=== PATIENT | female | born 1965 | race Two or more races ===

== ENCOUNTER 2025-10-19 13:32 | Emergency (ER) | payer MEDICAID, SELFPAY ==
[2025-10-19 13:51] VITALS: BP 124/83; PULSE 96; RESP 20; TEMP 37.5; O2SAT 95
[2025-10-19 14:37] LABS: Lactate (Lactic Acid) 2.5 mMol/L (0.4-2.0)
[2025-10-19 14:39] LABS: Basophils # (Auto) 0.1 Thou/mm3 (0.0-0.2); Basophils % (Auto) 1 % (0-2.5); Eosinophils # (Auto) 0.0 Thou/mm3 (0.0-0.5); Eosinophils % (Auto) 0 % (0-10); Hematocrit 42.8 % (36.0-46.0); Hemoglobin 14.6 g/dL (12.0-16.0); Immature Granulocytes Auto 0.14 Thou/mm3 (0.00-0.00); Lymphocytes # (Auto) 1.7 Thou/mm3 (1.0-4.8); Lymphocytes % (Auto) 11 % (10-50); Mean Corpuscular HGB Conc 34.1 g/dl (31.0-37.0); Mean Corpuscular Hemoglobin 29.6 pg (25.0-35.0); Mean Corpuscular Volume 87 fL (80-100); Monocytes # (Auto) 1.1 Thou/mm3 (0.0-0.8); Monocytes % (Auto) 7 % (0-12); Neutrophils # (Auto) 11.6 Thou/mm3 (1.8-7.7); Neutrophils % (Auto) 80 % (37-80); Nucleated Red Blood Cell # 0.00 Thou/mm3 (0.00-0.00); Nucleated Red Blood Cell % 0 /100 WBC (0); Platelet Count 302 Thou/mm3 (140-440); RDW Standard Deviation 45.1 fL (36.4-46.3); Red Blood Count 4.93 Miln/mm3 (4.00-5.20); White Blood Count 14.6 Thou/mm3 (3.6-11.0)
[2025-10-19 15:05] LABS: Alanine Aminotransferase 117 U/L (10-49); Albumin, Serum 4.8 gm/dL (3.4-4.8); Albumin/Globulin Ratio 1.3 (1.2-2.2); Alkaline Phosphatase 80 U/L (46-116); Anion Gap 17 (7-16); Aspartate Amino Transferase 98 U/L (0-34); BUN/Creatinine Ratio 9 Ratio (12-20); Bilirubin,Total 0.6 mg/dL (0.3-1.2); Blood Urea Nitrogen 13 mg/dL (9-23); Calcium 9.1 mg/dL (8.3-10.6); Calcium (Corrected) 9.1 mg/dL (8.5-10.1); Carbon Dioxide 19.8 mMol/L (20.0-31.0); Chloride 100 mMol/L (98-107); Creatinine (Component) 1.5 mg/dL (0.6-1.3); Globulin 3.7 gm/dL (2.3-3.5); Glucose 166 mg/dL (74-106); Osmolality,Calculated 277 (275-295); Potassium 3.3 mMol/L (3.4-5.1); Sodium 137 mMol/L (136-145); Total Protein 8.5 gm/dL (5.7-8.2); eGFR 39 See Note
[2025-10-19] MEDS: MG HYD/AL HYD/SIME (Maalox Reg) SUSP 30 ML UDC PO (16:26)
[2025-10-19] MEDS: ONDANSETRON INJ 2 MG/ML INJ 2 ML 4 MG IVP (16:27)
[2025-10-19 16:33] VITALS: BP 126/57; PULSE 83; RESP 22; O2SAT 96
[2025-10-19] MEDS: SODIUM CHLORIDE 0.9% 1000 ML 1,000 ML 999 ML IV (16:40)
[2025-10-19 17:00] VITALS: BP 135/65; PULSE 81; RESP 20; TEMP 36.8; O2SAT 94
[2025-10-19 17:34] LABS: Reflex Lactate? Y
[2025-10-19 18:42] LABS: Lactic Acid, 3 HR 1.2 mMol/L (0.4-2.0)
[2025-10-19 18:49] VITALS: BP 111/57; PULSE 75; RESP 20; TEMP 36.8; O2SAT 97
[2025-10-19 19:01] LABS: Collection Type, Urine Clean Catch
[2025-10-19 19:17] LABS: Bilirubin,Urine Negative (Negative); Blood,Urine Negative (Negative); Clarity,Urine Turbid (Clear/Hazy); Color,Urine Yellow (Lt Yel-Yel); Glucose, Urine Negative (Negative); Hyaline Casts,Urine 1 /hpf (0-1); Ketones,Urine Negative (Negative); Leukocyte Esterase,Urine Negative (Negative); Nitrite,Urine Negative (Negative); PH,Urine 6.5 (5.0-7.0); Protein,Urine 1+ (Neg - Trace); RBC,Urine 4 /hpf (0-3); Specific Gravity,Urine 1.017 (1.001-1.035); Squamous Epithelial Cell,Urine 2 /hpf (0-5); Urobilinogen,Urine Negative mg/dL (0.0-1.0); WBC,Urine 4 /hpf (0-5)
--- NOTE | 2025-10-19 19:50 | PD.EDFEVER ---
ED Fever RME/HPI General Chief Complaint: Fever Stated Complaint: High fevers, cough, dizzy Time Seen by Provider: 10/19/25 13:45 Source: patient and family Arrival date/time: 10/19/25 13:32 Mode of arrival: ambulatory Limitations: no limitations RME / HPI RME / HPI Narrative: This patient is a mildly histrionic and morbidly obese 60-year-old female who arrives to the ED today with her family member for evaluation of intermittent dizziness with nausea, vomiting and intermittent fever for the past few days. Family states symptoms came on to have abdomen flowed since inception. Patient denies any history of intracranial concerns or dizziness issues. Vital signs were stable arrival. Related Data Home Medications ?Medication ?Instructions ?Recorded ?Confirmed cholecalciferol (vitamin D3) 125 1,250 mcg PO QWEEK 03/11/21 03/11/21 mcg (5,000 unit) tablet (Vitamin D3) lisinopril 10 mg tablet 10 mg PO QDAY 03/11/21 03/11/21 lovastatin 20 mg tablet 20 mg PO QPM 03/11/21 03/11/21 metoprolol tartrate 25 mg tablet 25 mg PO QDAY 03/11/21 03/12/21 Previous Rx's ?Medication ?Instructions ?Recorded docusate sodium 100 mg capsule 100 mg PO BID #60 caps 03/17/21 (DOK) hydrocodone 5 mg-acetaminophen 325 1 tab PO Q6H PRN pain (scale score 03/17/21 mg tablet 7-10) #20 tabs ibuprofen 600 mg tablet 600 mg PO Q8H PRN pain (scale 03/17/21 score 4-6) #15 tabs lactulose 20 gram oral packet 20 g PO BID PRN constipation #30 ea 09/20/21 acetaminophen 500 mg tablet 500 mg PO Q4H PRN fever or pain 10/19/25 (Tylenol Extra Strength) #30 tabs ondansetron 4 mg disintegrating 4 mg PO Q6H PRN nausea and 10/19/25 tablet vomiting #20 tabs oseltamivir 75 mg capsule (Tamiflu) 75 mg PO BID 5 days #10 caps 10/19/25 Allergies Allergy/AdvReac Type Severity Reaction Status Date / Time No Known Allergies Allergy Verified 10/19/25 13:37 Past Medical History Past Medical History NEUROLOGIC: Negative Neurological Disorders or Seizures CARDIAC: Positive Cardiac Disorders, Hypercholesterolemia and Hypertension; Negative Congestive Heart Failure, Edema, Cellulitis or Varicose Veins RESPIRATORY: Negative Chronic Obstructive Pulmonary Disease (COPD), Tuberculosis, Pulmonary Embolism or Sleep Apnea GASTROINTESTINAL: Positive Gastrointestinal Disorders, Hiatal Hernia, Gastroesophageal Reflux Disease and Obesity; Negative Hepatitis GENITOURINARY: Negative Genitourinary Disorders or Renal Disease REPRODUCTIVE: Positive Previous Pregnancies MUSCULOSKELETAL: Positive Scoliosis; Negative Musculoskeletal Disorders ENDOCRINE: Negative Endocrine Disorders, Diabetes Mellitus Type 1 or Diabetes Mellitus Type 2 HEMATOLOGIC: Negative Blood Disorders OTHER HISTORY: Negative Hospitalization, Autoimmune Disease, Shingles, Falls, Blood Transfusions, Blood Transfusion Reaction, Anesthesia Reactions, Chemotherapy, Radiation Therapy, MRSA, Chicken Pox, Measles, Mumps or Cancer Family History FAMILY HISTORY: Positive Family Cardiac Disorders, Family Gastrointestinal Problems and Family Surgery; Negative Family Psychiatric Problems, Family Respiratory Disorders, Family Cancer or Family Anesthesia Reaction Surgical History SURGICAL: Positive Bowel Surgery, Tubal Ligation and Section; Negative Pacemaker Social History SMOKING STATUS: Former smoker SECOND HAND EXPOSURE: No Physical Exam General Limitations: no limitations General appearance: alert and in distress Head Head exam: atraumatic Eye Eye exam: Present normal appearance, PERRL and EOMI ENT ENT exam: Present normal exam, normal oropharynx and mucous membranes moist Neck Neck exam: Present normal inspection, full ROM and trachea midline Chest Chest inspection: Present normal inspection and symmetric chest wall rise Respiratory Respiratory exam: Present normal lung sounds bilaterally Cardiovascular Cardiovascular exam: Present regular rate, normal rhythm and normal heart sounds Abdominal Exam Abdominal exam: Present soft and normal bowel sounds Extremities Exam Extremities exam: Present normal inspection and full ROM Back Exam Back exam: Present normal inspection and full ROM Neurological Exam Neurological exam: Present oriented X3 and CN II-XII intact Psychiatric Psychiatric exam: Present other (Patient look moderately toxic at time of evaluation. Patient was mildly diaphoretic and weak.) Skin Skin exam: Present warm, dry, intact and normal color ED Exam General Limitations: Present no limitations General appearance: Present alert and in distress Head Head exam: Present atraumatic Eye Eye exam: Present normal appearance, PERRL and EOMI ENT ENT exam: Present normal exam, normal oropharynx and mucous membranes moist Neck Neck exam: Present normal inspection, full ROM and trachea midline Chest Chest inspection: Present normal inspection and symmetric chest wall rise Respiratory Respiratory exam: Present normal lung sounds bilaterally Cardiovascular Cardiovascular exam: Present regular rate, normal rhythm and normal heart sounds Abdominal Exam Abdominal exam: Present soft and normal bowel sounds Extremities Exam Extremities exam: Present normal inspection and full ROM Back Exam Back exam: Present normal inspection and full ROM Neurological Exam Neurological exam: Present oriented X3 and CN II-XII intact Psychiatric Psychiatric exam: Present other (Patient look moderately toxic at time of evaluation. Patient was mildly diaphoretic and weak.) Skin Skin exam: Present warm, dry, intact and normal color Course Quality Measures none Orders Category Date Time Status Bedside COVID-19 Antigen Test NOW Care 10/19/25 14:04 Active Bedside Influenza A&B Antigen Test NOW Care 10/19/25 14:04 Completed IV [Insert IV] NOW Care 10/19/25 14:04 Active CBC Stat Lab 10/19/25 14:28 Completed CMP [Comprehensive Metabolic Panel] Stat Lab 10/19/25 14:28 Completed Lactate (Lactic Acid) Stat Lab 10/19/25 14:28 Completed Lactic Acid, 3 HR Stat Lab 10/19/25 18:31 Completed UA [Urinalysis] Stat Lab 10/19/25 18:39 Completed Ondansetron Inj [Zofran Inj] Med 10/19/25 14:02 Discontinued 4 mg IVP X1 ONE Sodium Chloride 0.9% 1000 ml [Ns] 1,000 ml Med 10/19/25 14:02 Discontinued IV 150 mls/hr Sodium Chloride 0.9% 1000 ml [Ns] 1,000 ml Med 10/19/25 16:37 Discontinued IV 999 mls/hr mg Hyd/Al Hyd/Pallavi Susp [Maalox Susp] Med 10/19/25 14:02 Discontinued 30 ml PO X1 ONE As noted above Vital Signs Vital signs: Vital Signs Temperature 99.5 F 10/19/25 13:51 Pulse Rate 96 10/19/25 13:51 Respiratory Rate 20 10/19/25 13:51 Blood Pressure 124/83 10/19/25 13:51 Pulse Oximetry (%) 95 10/19/25 13:51 Oxygen Delivery Method Room Air 10/19/25 13:51 As noted above Fever MDM Narrative MDM Narrative:: All studies performed the ED were evaluated by me personally. Serum and laboratory studies were unremarkable for any systemic concerns. Swab studies were remarkable for influenza A. Patient will be sent home with supportive medication and advised to utilize good hydration and healthy nutrition throughout illness event. Patient data External records reviewed:: [facility] previous records Clinical information provided by:: patient Social determinants that could affect healthcare access:: none Patient has the following chronic illnesses:: None How is presenting disease/condition affected by chronic disease/condition?: uneffected by Evaluation data The following diagnostics were reviewed and interpreted by me:: lab results, radiology exam(s) and EKG tracing(s) Lab and/or radiology exams considered but not ordered:: None Interpretation Summary: Influenza A Medications / Prescriptions Medications or Prescriptions considered but not ordered:: None Medication administrations:: Medication Administration History Discontinued Medications Al Hydrox/Mg Hydrox/Simethicone (Mg Hyd/Al Hyd/Pallavi (Maalox Reg) Susp 30 Ml Udc) 30 ml PO X1 ONE Stop: 10/19/25 14:03 Last Admin: 10/19/25 16:26 Dose: 30 ml Documented By: MANUEL Sodium Chloride (Ns) 1,000 mls @ 150 mls/hr IV .Q6H40M ONE Stop: 10/19/25 20:41 Last Admin: 10/19/25 16:38 Dose: Not Given Documented By: MANUEL Non-Admin Reason: Cancelled by Provider Sodium Chloride (Ns) 1,000 mls @ 999 mls/hr IV .Q1H1M ONE Stop: 10/19/25 15:02 Last Infusion: 10/19/25 18:57 Dose: Infused Documented By: Admin: 10/19/25 16:40 Dose: 999 mls/hr Documented By: MANUEL Ondansetron HCl (Ondansetron Inj 2 Mg/Ml Inj 2 Ml) 4 mg IVP X1 ONE; Protocol Stop: 10/19/25 14:03 Last Admin: 10/19/25 16:27 Dose: 4 mg Documented By: MANUEL As noted above Consultations Consultation(s) initiated? (list below): No Diagnosis Fever Differential Diagnosis: other (Sepsis, electrolyte abnormality, influenza, COVID, UTI) Most likely diagnosis given after review of the tests above:: Influenza A Admission Indicated Admission indicated?: not indicated Explain why admission is indicated or not indicated:: Unwarranted Admission Request Was there a request for admission?: No Disposition Plan Disposition Plan: Discharge Discharge Attestation Discharge Attestation: The patient and all family members were given an opportunity to ask questions and understood the discharge instructions. Discharge instructions specifically effects, indications for sooner follow up or return to the emergency department, and the expected course of current diagnosis. Patient condition: Stable Discharge Plan Plan Patient Disposition: HOME (Self Care) Prescriptions/Referrals Prescriptions/Med Rec: New ondansetron 4 mg tablet,disintegrating 4 mg PO Q6H PRN (Reason: nausea and vomiting) Qty: 20 0RF acetaminophen [Tylenol Extra Strength] 500 mg tablet 500 mg PO Q4H PRN (Reason: fever or pain) Qty: 30 0RF oseltamivir [Tamiflu] 75 mg capsule 75 mg PO BID 5 Days Qty: 10 0RF No Action lisinopril 10 mg Tablet 10 mg PO QDAY lovastatin 20 mg Tablet 20 mg PO QPM metoprolol tartrate 25 mg Tablet 25 mg PO QDAY cholecalciferol (vitamin D3) [Vitamin D3] 125 mcg (5,000 unit) Tablet 1,250 mcg PO QWEEK Rx Instructions: Q Thursday docusate sodium [DOK] 100 mg Capsule 100 mg PO BID Qty: 60 0RF hydrocodone-acetaminophen 5-325 mg tablet 1 tab PO Q6H MDD 4 PRN (Reason: pain (scale score 7-10)) Qty: 20 0RF ibuprofen 600 mg tablet 600 mg PO Q8H PRN (Reason: pain (scale score 4-6)) Qty: 15 0RF lactulose 20 gram packet 20 g PO BID PRN (Reason: constipation) Qty: 30 0RF Referrals: Remigio Saldaña MD [Primary Care Provider, Family Practice] - In 1 week Problem List Clinical Impression: Influenza Patient/Caregiver Discharge Instructions Education Materials: ED Influenza (Adult) Additional Instructions: Advised patient utilize Tamiflu as directed to completion as well as supplemental medication as needed. Good hydration and healthy nutrition has been advised throughout. Print Language: Tristanian Stand Alone Forms: Karen Award Info., Patient Portal Info Letter
[2025-10-19 20:32] VITALS: BP 135/61; PULSE 67; RESP 18; TEMP 36.8; O2SAT 95
== END 2025-10-19 20:35 | disposition home or self-care (01) ==
PROVIDERS: Physician Assistant; Emergency Provider Family Medicine; PCP Family Medicine
DX: J10.1 Influenza due to other identified influenza virus with other respiratory manifestations (principal); E66.01 Morbid (severe) obesity due to excess calories
CPT/HCPCS: 36415; 80053; 81001; 83605; 85025; 87502; 87635; 96361; 96374; 99283; J2405; J7030; A9270